=== PATIENT | male | born 1995 | race Caucasian/White ===

== ENCOUNTER 2018-09-25 09:02 | Emergency (ER) | payer SELFPAY ==
[~2018-09-25] VITALS: Ht 165.1 cm; Wt 67.5 kg
[~2018-09-25 09:02] MED LIST: CETI10CA PO; D-ME473S2 PO
[2018-09-25 09:06] VITALS: BP 133/81; PULSE 64; RESP 20; Ht 165.1 cm; Wt 67.5 kg
--- NOTE | 2018-09-25 10:07 | ERD ---
ER Documentation Chief Complaint Chief Complaint Complains of laceration to the finger HPI 23-year-old male presents with laceration to his left second finger. He is right-hand dominant. This occurred with a knife at work. No numbness or tingling. Throbbing pain at the site of the bleeding. No loss of range of motion. Tetanus is up-to-date ROS All systems reviewed and are negative except as per history of present illness. Medications Home Meds Active Scripts Dextromethorphan Hb-Promethazine Hcl* (Promethazine DM* Syrup) 473 Ml Syrup, 5 ML PO Q6 PRN for COUGH for 7 Days, ML Prov:EDGAR HOWE MD 06/27/15 Cetirizine Hcl* (Zyrtec*) 10 Mg Capsule, 10 MG PO DAILY, #20 TAB.CHEW Prov:EDGAR HOWE MD 06/27/15 Allergies Allergies: Coded Allergies: amoxicillin (Verified Allergy, Intermediate, 09/25/18) PMhx/Soc Medical and Surgical Hx: pt denies Medical Hx, pt denies Surgical Hx History of Surgery: No Anesthesia Reaction: No Hx Neurological Disorder: No Hx Respiratory Disorders: No Hx Cardiac Disorders: No Hx Psychiatric Problems: No Hx Miscellaneous Medical Probl: No Hx Alcohol Use: No Hx Substance Use: No Hx Tobacco Use: No Smoking Status: Never smoker FmHx Family History: No diabetes Physical Exam Vitals Vital Signs Date Temp Pulse Resp B/P (MAP) Pulse Ox O2 O2 Flow FiO2 Time Delivery Rate 09/25/18 98.2 64 20 133/81 100 09:06 (98) Physical Exam Const: No acute distress Resp: Clear to auscultation bilaterally Cardio: Regular rate and rhythm, no murmurs Left hand: Second digit along the border that effaces the third finger there is a skin avulsion oval-shaped approximately 1 inch in length, does not involve the nailbed, full range of motion and finger in all directions, capillary refill less than 2 seconds, no bony abnormalities Procedures/MDM Patient presents with avulsion type laceration. No indication for sutures. It was cleaned and irrigated and Surgicel was applied and it was dressed and bandaged. Patient states that this happened at work and while he was here his work called him and told him that he was actually supposed to be at a different facility for Worker's Comp. Patient counseled regarding my diagnostic impression and care plan. Prior to discharge all questions answered. Pt agrees with treatment plan and understands strict return precautions. Pt is instructed to follow up with primary care provider within 24-48 hours. Precautionary instructions provided including instructions to return to the ER if not improving or for any worsening or changing symptoms or concerns. Departure Diagnosis: Primary Impression: Finger laceration Condition: Stable Patient Instructions: Laceration, All Additional Instructions: Call your primary care doctor TOMORROW for an appointment during the next 1-2 days.See the doctor sooner or return here if your condition worsens before your appointment time. NARGIS MARES PA-C September 25, 2018 10:07
== END 2018-09-25 10:55 | disposition home or self-care (01) ==
LOC: FTE 09:02
DX: S61.211A Laceration without foreign body of left index finger without damage to nail, initial encounter (principal); W26.0XXA Contact with knife, initial encounter; Y92.89 Other specified places as the place of occurrence of the external cause